=== PATIENT | male | born 1960 | race Caucasian/White ===

== ENCOUNTER → 2023-08-28 09:40 | Outpatient (REF) | payer BC, SELFPAY | LOC: MRI 3T 09:40 | PROVIDERS: ATTENDING PHYSICIAN Specialist; FAMILY PHYSICIAN Family Medicine | DX: R97.20 Elevated prostate specific antigen [PSA] (principal); C61 Malignant neoplasm of prostate | CPT/HCPCS: 72197; A9575 ==